=== PATIENT | female | born 1995 | race Asian ===

== ENCOUNTER 2021-07-09 16:27 | Inpatient (IN) ==
[2021-07-09] MEDS ORDERED: miSOPROStoL 50 MCG TAB PO ONE (21:01)
[2021-07-09] MEDS ORDERED: OXYTOCIN 30 UNITS/500 ML BAG IV PRN (21:01)
[2021-07-09 21:33] LABS: Hematocrit (blood only) 33.9 % (37-47); Hemoglobin 11.6 g/dL (12.0-16.0); Mean Corpuscular Hemoglobin 28.4 pg (25-34); Mean Corpuscular Hgb Conc 34.2 g/dL (32-36); Mean Corpuscular Volume 82.9 fL (80-100); Mean Platelet Volume 9.6 fL (7.4-10.4); Platelet Count 239 K/uL (130-400); RDW Coefficient of Variation 14.5 % (11.5-14.5); RDW Standard Deviation 43.6 fL (36.4-46.3); Red Blood Count 4.09 M/uL (4.2-5.4); White Blood Count 7.43 K/uL (4.8-10.8)
[2021-07-10] MEDS ORDERED: OXYTOCIN 30 UNITS/500 ML BAG IV PRN ×2 (07:24→19:05)
[2021-07-10] MEDS: LACTATED RINGER'S 1,000 ML IV PRN ×2 (08:08→12:05)
[2021-07-10] MEDS ORDERED: fentaNYL citrate 100 MCG/2 ML VIAL ONE (11:30)
[2021-07-10] MEDS ORDERED: BUPIVACAINE 0.25% 30 ML VIAL ONE ×2 (11:30→17:23)
[2021-07-10] MEDS ORDERED: SODIUM CHLORIDE 0.9% INJ 10 ML VIAL ONE ×2 (11:30→17:22)
[2021-07-10] MEDS ORDERED: ePHEDrine sulfate 50 MG/ML AMP ONE (11:30)
[2021-07-10] MEDS ORDERED: fentaNYL 2MCG/ML ROPIVACAINE 1.25MG/ML 100 ML BAG EPI ONE (11:31)
[2021-07-10] MEDS ORDERED: ePHEDrine sulfate 50 MG/ML AMP IV PRN (12:09)
[2021-07-10] MEDS ORDERED: diphenhydrAMINE 50 MG/ML VIAL IV PRN (12:09)
[2021-07-10] MEDS ORDERED: ONDANSETRON INJ 2 MG/ML 2 ML VIAL IV PRN (12:09)
[2021-07-10] MEDS ORDERED: NALOXONE HCL 1 MG in SODIUM CHLORIDE 0.9% 1000ML 1,000 ML IV PRN (12:09)
[2021-07-10] MEDS ORDERED: NALOXONE HCL 0.4 MG/1 ML VIAL/CARP IV PRN (12:09)
[2021-07-10] MEDS ORDERED: fentaNYL 2MCG/ML ROPIVACAINE 1.25MG/ML 100 ML BAG EPI PRN (12:09)
[2021-07-10] MEDS ORDERED: NALBUPHINE HCL INJ 10 MG/ML AMP IV PRN (12:09)
--- NOTE | 2021-07-10 12:14 | Anesthesiology Consultation ---
Date of Service July 10, 2021 Assessment & Plan Chart Review Chart Review: Patient NOT seen in Pre Admission Testing and Acceptable Risk for Labor Epidural Consults Requested none ASA ASA2 Proposed Anesthesia Anesthesia Type: Labor Epidural and CSE Risk / Benefits Reviewed With: PT / POA / Parent / Guardian, Accepts Plan and Informed Consent Obtained History Height/Weight Height: 5 ft 4.96 in Weight: 79.379 kg Allergies Allergy/AdvReac Type Severity Reaction Status Date / Time No Known Drug Allergies Allergy Verified 12/07/20 14:45 Medications Home Medications Medication Instructions Recorded Confirmed Last Taken prenat.vits,isac,vkq-[id number] 1 tab PO DAILY 12/07/20 07/09/21 07/08/21 Active Medications Generic Name Dose Route Start Last Admin Trade Name Freq PRN Reason Stop Dose Admin Lactated Ringer's 1,000 mls @ 125 mls/hr 07/09/21 21:01 07/10/21 12:05 Lr IV 07/11/21 21:00 125 mls/hr .Q8H PRN Administration L&D Protocol Protocol Oxytocin 30 units in 500 mls @ 12 mls/hr 07/10/21 07:24 07/10/21 11:10 Pitocin IV 07/12/21 07:23 0.72 units/hr .Q24H PRN 12 mls/hr Labor Induction/Augmentation Titration Protocol 0.72 UNITS/HR NPO Date Last Intake of Fluids: 07/10/21 Time Last Intake of Fluids: 11:00 Date Last Intake of Solids: 07/09/21 Time Last Intake of Solids: 17:00 Past Medical History Medical History No known health problems Exercise / Class Metabolic Activity II 4-5 Yardwork/Stairs/Walk up hill Past Family History Family History Mother Hypertension Father Hypertension Past Surgical History Surgical History No history of previous surgery Past Anesthesia History No Hx of Anesthesia Complications and No Family Hx of Anesthesia Complications History of PONV No Hx of PONV and No Hx of Motion Sickness Social History Smoking Status: Never smoker Hx Alcohol Use: No Hx Substance Use: No Review of Systems no chest pain or sob Physical Exam Vital Signs Last Vital Signs Temp 36.8 C 07/10/21 11:47 Pulse 72 07/10/21 12:07 Resp 20 07/10/21 11:47 BP 120/71 07/10/21 11:47 Pulse Ox 97 07/10/21 12:07 ENMT Mouth: no TMJ abnormality Thyromental Distance: > or= 3.5 Finger Breadths Mallampati Class: II Neck normal visual inspection Respiratory normal respiratory effort Auscultation: lungs clear to auscultation bilaterally Cardiovascular Rate/Rhythm: regular rate and regular rhythm Musculoskeletal Spine: normal cervical ROM Neurologic moves all extremities Psychiatric Orientation: alert and oriented x 3 Testing Laboratory Results 07/09/21 21:16
[2021-07-10] MEDS ORDERED: NURSING L&D Epidural Breakthrough Pain Update ONE (16:58)
[2021-07-10] MEDS ORDERED: LIDOCAINE 1% LOCAL 20 ML VIAL ONE (18:45)
[2021-07-10] MEDS ORDERED: ACETAMINOPHEN W/CODEINE #3 1 TAB PO PRN (19:05)
[2021-07-10] MEDS ORDERED: DIPHTHERIA/TETANUS/PERTUSSIS 0.5 ML SYR/VIAL IM ONE (19:05)
[2021-07-10] MEDS ORDERED: ACETAMINOPHEN 325 MG TAB PO PRN (19:05)
[2021-07-10] MEDS ORDERED: bisacodyL 10 MG SUPP PR PRN (19:05)
[2021-07-10] MEDS ORDERED: SUPERCREAM 0.870% 15 GM JAR EXT PRN (19:05)
[2021-07-10] MEDS ORDERED: miSOPROStoL 200 MCG TAB PR ONE (19:05)
[2021-07-10] MEDS ORDERED: oxyCODONE/ACETAMINOPHEN 5mg/325mg TAB PO PRN (19:05)
[2021-07-10] MEDS ORDERED: BENZOCAINE 20% AER SPR 82.5 GM CAN EXT PRN (19:05)
[2021-07-10] MEDS ORDERED: IBUPROFEN 600 MG TAB PO PRN (19:05)
[2021-07-10] MEDS ORDERED: HYDROCORTISONE ACETATE 25 MG SUPP PR PRN (19:05)
[2021-07-10] MEDS ORDERED: miSOPROStoL 200 MCG TAB ONE (19:08)
--- NOTE | 2021-07-10 19:49 | Delivery Summary ---
DATE OF DELIVERY: 07/10/2021 This patient was followed in our office for care and delivery. She had no problems. She di d go over her expected date of confinement. She was brought in for induction at 40 weeks and 6 days. At the time of induction, her cervix was about 2 cm, posterior and soft. She was brought in Thursday evening, given a dose of p.o. Cytotec. Contracted mild to moderate throughout the night. The next m orning when I came in, on her first exam, she was about 4 cm. She was then switched to IV Pitocin. She was given IV Pitocin. She got to about 5-6 cm, requested and received epidural anesthesia. She obtained good pain relief from the epidural anesthesia. At about 6 cm, membranes were ruptured surgic ally. Fluid was clear. She then with IV Pitocin running had a nice, steady progress. Cervix dilate d. As soon as she became dilated, the head came right down. She pushed for about 40 minutes and pus hed out a live female infant via direct occiput anterior position over an intact perineum. Infant wa s suctioned through the mouth and the nose. Shoulders were delivered without difficulty. Cord was a llowed to pulse for one full minute, then clamped and cut by the father. Cord blood was taken. With IV Pitocin running, the placenta was removed intact. Uterus contracted nicely. Inspection of the p erineum revealed a right sulcus laceration, which went out beyond the hymenal ring and a tore part of the right labia minora. The part of the right labia minora, which was torn, was approximated with 2 mattress sutures of 3-0 chromic. Then, the upper vaginal extent of the sulcus laceration was identi fied and a heavy Vicryl was used to approximate the vaginal mucosa out and to beyond the hymenal ring . This reapproximated the tear. This was tied. Hemostasis was good. Sponges were removed from the vagina. Rectal examination revealed no sponges through the rectum and 800 mcg of Cytotec was placed rectally. Estimated blood loss was 500 mL. the patient tolerated the delivery well. Job ID: [id number]
--- NOTE | 2021-07-10 20:08 | Anesthesia Procedure Note ---
Date of Service July 10, 2021 Anesthesia Post Epidural Note Vital Signs Vital Signs: Temp Pulse Resp BP Pulse Ox 36.9 C 88 18 130/63 96 07/10/21 19:05 07/10/21 20:05 07/10/21 19:05 07/10/21 20:05 07/10/21 19:02 Notes Mental Status: alert / awake / arousable and participated in evaluation Nausea / Vomiting: adequately controlled Pain: adequately controlled Airway Patency, RR, SpO2: stable & adequate BP & HR: stable & adequate Hydration State: stable & adequate Neuraxial Anesthesia: was administered and sensory block is resolving Anesthetic Complications: no major complications apparent and Pt Satisfied with anesthetic care Epidural: Removed without complications and With tip intact
[2021-07-10] MEDS: DOCUSATE SODIUM 100 MG CAP PO SCH (21:43)
[2021-07-11 06:51] LABS: Hematocrit (blood only) 28.8 % (37-47); Hemoglobin 9.8 g/dL (12.0-16.0); Mean Corpuscular Hemoglobin 28.2 pg (25-34); Mean Corpuscular Volume 82.8 fL (80-100); Platelet Count 221 K/uL (130-400); RDW Coefficient of Variation 14.2 % (11.5-14.5); RDW Standard Deviation 42.6 fL (36.4-46.3); Red Blood Count 3.48 M/uL (4.2-5.4); White Blood Count 11.67 K/uL (4.8-10.8)
[2021-07-11] MEDS: DOCUSATE SODIUM 100 MG CAP PO SCH ×2 (07:54→21:44)
[2021-07-11] MEDS: PRENATAL VITAMIN 1 TAB PO SCH (07:54)
--- NOTE | 2021-07-11 08:25 | Obstetrical Progress Note ---
Date of Service July 11, 2021 Assessment & Plan Admission and Anticipated Discharge Date Admission Date: July 09, 2021 Subjective abdomen soft and non tender no calf tenderness ambulating well vaginal bleeding scant hgb 9.8 Results & Data ([facility]) Vital Signs (Past 12 Hours) Vital Signs Temp Pulse Pulse Resp BP BP Pulse Ox 07/11/21 07:42 36.8 C 73 18 115/80 96 07/11/21 04:30 37.0 C 74 16 115/79 99 07/10/21 23:00 37.0 C 82 16 118/75 99 07/10/21 21:45 37.5 C 88 16 114/76 95 07/10/21 21:10 37.1 C 18 07/10/21 21:07 109 H 142/65 H 07/10/21 20:37 90 124/70 07/10/21 20:36 92 H 154/60 H 07/10/21 20:35 18
[2021-07-11] MEDS ORDERED: bisacodyL 5 MG TABEC PO SCH (20:00)
[2021-07-12 07:13] LABS: Hematocrit (blood only) 31.3 % (37-47); Hemoglobin 10.5 g/dL (12.0-16.0)
[2021-07-12] MEDS: DOCUSATE SODIUM 100 MG CAP PO SCH (08:32)
[2021-07-12] MEDS: PRENATAL VITAMIN 1 TAB PO SCH (08:32)
--- NOTE | 2021-07-12 08:33 | Obstetrical Progress Note ---
Date of Service July 12, 2021 Assessment & Plan Admission and Anticipated Discharge Date Admission Date: July 09, 2021 Subjective abdomen soft and non tender no calf tenderness ambulating well vaginal bleeding scant hgb 10.5 Results & Data ([facility]) Vital Signs (Past 12 Hours) Vital Signs Temp Pulse Resp BP Pulse Ox 07/11/21 23:00 37.0 C 70 16 116/72 97
== END 2021-07-12 15:35 | disposition home or self-care (01) | DRG 807 ==
LOC: 4S1 20:00 → 4S2 07-10 21:30